=== PATIENT | male | born 1975 | race Caucasian/White ===

== ENCOUNTER 2020-04-05 11:52 | Outpatient (CLI) | payer BC ==
--- NOTE | 2020-04-05 14:35 | MRI ---
EXAM: MRI left wrist PROVIDED CLINICAL HISTORY: Left wrist pain COMPARISON: None FINDINGS: The dorsal extensor and volar flexor tendons demonstrate an intact MR appearance. The TFC complex and scapholunate ligament appear grossly intact. There is increased signal intensity on fluid sensitive sequences and poor definition involving the volar aspects of the scapholunate ligament, suspicious for tear. There is increased signal intensity on fluid sensitive sequences invol ving the radial attachment of the radioscaphocapitate ligament, suspicious for partial tear. The amount of fluid within the radiocarpal, midcarpal and distal radioulnar joints is physiologic. No focal concerning regional marrow or muscular signal abnormality apparent. The courses of the regional major neurovascular structures appear unremarkable. IMPRESSION: 1. Findings suspicious for tear involving the volar aspect of the scapholunate ligament. 2. Findings suspicious for partial tear involving the radial attachment of the radioscaphocapitate li gament.
--- NOTE | 2020-04-05 15:49 | MRI ---
MRI OF BRAIN WITHOUT CONTRAST: 04/05/20 HISTORY: Hyperreflexia. Bilateral hand and arm pain. COMPARISON: None. FINDINGS: No evidence of restricted diffusion is seen. No significant signal abnormalities are seen on the high ly sensitive FLAIR images. No blood products are noted on the gradient echo sequences. No evidence of infarct, hemorrhage, midline shift or abnormal extra-axial fluid collections are seen. The ventricular size is normal and the basilar cisterns patent. The visualized paranasal sinuses and mastoids are well aerated. IMPRESSION: Normal unenhanced MRI of the brain. POS: MZA
--- NOTE | 2020-04-05 16:24 | MRI ---
MRI CERVICAL SPINE WITHOUT CONTRAST: 04/05/20 HISTORY: 44-year-old male with cervical stenosis of the spinal canal. Bilateral hand and arm pain. FINDINGS: The vertebral body heights and marrow signal are maintained. The disc osteophyte complexes at C3-4 an d C4-5 levels with mild right sided uncohypertrophic change at C4-5 level. The disc osteophyte comple x causes effacement of the anterior thecal sac with abutment/mild impingement of the anterior spinal canal at C3-4 level. There is mild right sided neural foraminal stenosis at C4-5 level. The cervical spinal cord demonstrates normal course, caliber or signal. No cord edema, syringomyelia, myelomalacia or cord atrophy is seen. The paraspinal musculature is normal. Incidental note is made of prominent dorsal cervical fat. Clinical correlation for Cody syndrome is recommended. IMPRESSION: Cervical spondylosis with central canal stenosis at C3-4 level and mild right sided neural foraminal stenosis at C5-6 level. POS: [id number]
== END 2020-04-05 11:53 | disposition home or self-care (01) ==
LOC: MRI 11:52
PROVIDERS: ATTEND Orthopaedic Surgery Hand Surgery
DX: M48.02 Spinal stenosis, cervical region (principal); S63.592A Other specified sprain of left wrist, initial encounter; R29.2 Abnormal reflex; M47.812 Spondylosis without myelopathy or radiculopathy, cervical region; M35.1 Other overlap syndromes; G56.23 Lesion of ulnar nerve, bilateral upper limbs; G56.03 Carpal tunnel syndrome, bilateral upper limbs; M34.9 Systemic sclerosis, unspecified
CPT/HCPCS: 36415; 70551; 72141; 83520; 85025; 85652; 86038; 86200; 86225; 86618